=== PATIENT | female | born 1980 | race Caucasian/White ===

== ENCOUNTER 2017-06-06 15:22 | Emergency (ER) | payer OTHER ==
[~2017-06-06] VITALS: Ht 172.7 cm; Wt 65.0 kg
[~2017-06-06 15:22] MED LIST: AMOXICILLIN500 MG PO; AMOXICILLIN875 MG OR; AMOXIL400 MG/5 M PO; AMOXIL500 MG OR; ATENOLOL25 MG OR; ATENOLOL25 MG PO; ATENOLOL50 MG OR; ATENOLOL50 MG PO; ATIVAN0.5 MG PO; AUGMENTIN500 MG OR; AUGMENTIN875 MG OR; CEFTIN500 MG OR; CIPRO500 MG OR; CORTISPORIN OTI10 M1 OT; DILAUDID 2MG2 MG/TA1 PO; FIORICET PO; IBUPROFEN600 MG PO; IRON OR; LOPRESSOR 550 MG/TAB PO; LORTAB 10 OR; LORTAB 5 OR; LORTAB 5/3255 MG PO; LORTAB5 PO; MIDODRINE5 MG PO; MOTRIN600 MG OR; MS CONTIN30 MG PO; MS CONTIN60 MG OR; NO HOME MEDS; NO MEDS; NORCO1 TA1 PO; OXYMORPHONE; PAXIL10 MG OR; PERCOCET 5/325M1 TAB OR; PERCOCET 5/325M1 TAB PO; PERCOCET1 TA4 PO; PRILOSEC20 MG OR; ROBITUSS11 OR; ROXICODONE30 MG OR; SOMA350 MG OR; TENORMIN PO; TENORMIN25 MG PO; TUBERSOL5 MG/0.1 M ID; TUMS500 MG PO; TYLENOL # 31 TAB OR; TYLENOL 500MG TAB PO; TYLENOL ARTH650 MG OR; TYLENOL325 MG PO; TYLENOL500 MG OR; ULTRAM50 MG OR; VERAPAMIL120 M1 PO; VICOPROFEN OR; XANAX0.25 MG PO; XANAX1 MG OR; XANAX1 MG PO; ZANAFLEX4 MG PO
[2017-06-06 16:55] LABS: HEMATOCRIT 33.4 % (37.0-47.0); HEMOGLOBIN 10.8 g/dl (12.0-16.0); IMMATURE GRANULOCYTES 0.3 % (0.0-1.0); MEAN CELL VOLUME 92.5 fL CALC (80.0-100.0); MEAN CORPUSCULAR HGB 29.9 pG CALC (26.0-32.0); MEAN CORPUSCULAR HGB CONC 32.3 g/L CALC (32.0-36.0); NEUT# 3.54 thou/uL (2.00-7.15); RED BLOOD COUNT 3.61 mill/uL (4.20-5.60); RED CELL DISTRI WIDTH 14.6 % (11.5-15.5)
[2017-06-06 17:11] LABS: ALBUMIN 4.1 g/dL (3.2-5.0); ALKALINE PHOSPHATASE 63 u/l (38-126); ANION GAP 15 (6-22 (CALC)); BILIRUBIN, TOTAL 0.5 mg/dL (0.0-1.4); BUN 16 mg/dL (7-17); BUN/CREATININE RATIO 28 (12-20 (CALC)); CALCIUM 9.2 mg/dL (8.4-10.2); CARBON DIOXIDE 22 mmol/l (22-30); CHLORIDE 105 mmol/l (95-108); CREATININE 0.6 mg/dL (0.5-1.0); GFR > 60 ML/MIN (>=60 (CALC)); GFR FOR AFR.AMER. > 60 ML/MIN (>=60 (CALC)); GLUCOSE 97 mg/dL (65-105); POTASSIUM 3.9 mmol/l (3.5-5.1); SGOT/AST 23 u/l (14-36); SGPT/ALT 24 u/l (9-52); SODIUM 139 mmol/l (137-146); TOTAL PROTEIN 7.6 g/dL (6.3-8.2)
[2017-06-06] MEDS ORDERED: LORTAB 10-325 M1 TAB PO (19:22)
[2017-06-06 19:41] VITALS: BP 128/84
== END 2017-06-06 19:42 | disposition home or self-care (01) | DRG 601 ==
LOC: ED 15:22
PROVIDERS: Emergency Medicine
DX: N63.0 Unspecified lump in unspecified breast (principal); I10 Essential (primary) hypertension; F41.0 Panic disorder [episodic paroxysmal anxiety]; G89.29 Other chronic pain; M54.9 Dorsalgia, unspecified; F17.210 Nicotine dependence, cigarettes, uncomplicated; Z86.79 Personal history of other diseases of the circulatory system
CPT/HCPCS: Q9967

== ENCOUNTER 2018-06-17 21:49 | Emergency (ER) | payer OTHER ==
[~2018-06-17] VITALS: Ht 172.7 cm; Wt 60.0 kg
[~2018-06-17 21:49] MED LIST changes: +LORTAB 10-325 M1 TAB PO
[2018-06-17] MEDS ORDERED: MORPHINE SUL30 M5 PO (22:00)
[2018-06-17] MEDS ORDERED: MORPHINE SULFAT30 M2 PO (22:00)
[2018-06-17] MEDS ORDERED: XANAX0.25 MG PO (22:01)
[2018-06-17 23:50] LABS: HEMATOCRIT 33.9 % (37.0-47.0); HEMOGLOBIN 10.7 g/dl (12.0-16.0); IMMATURE GRANULOCYTES 0.4 % (0.0-5.0); MEAN CORPUSCULAR HGB 24.9 pG CALC (26.0-32.0); MEAN CORPUSCULAR HGB CONC 31.6 g/L CALC (32.0-36.0); NEUT# 12.3 thou/uL (2.00-7.15); RED BLOOD COUNT 4.29 mill/uL (4.20-5.60); RED CELL DISTRI WIDTH 18.1 % (11.5-15.5)
[2018-06-18] LABS: ALKALINE PHOSPHATASE 86 u/l (38-126); AMYLASE 42 u/l (30-110); ANION GAP 14 (6-22 (CALC)); BILIRUBIN, TOTAL 0.4 mg/dL (0.0-1.4); BUN 16 mg/dL (7-17); BUN/CREATININE RATIO 29 (12-20 (CALC)); CARBON DIOXIDE 28 mmol/l (22-30); CHLORIDE 102 mmol/l (95-108); CREATININE 0.5 mg/dL (0.5-1.0); GFR > 60 ML/MIN (>=60 (CALC)); GFR FOR AFR.AMER. > 60 ML/MIN (>=60 (CALC)); LIPASE 46 u/l (23-300); SGOT/AST 13 u/l (14-36); SODIUM 140 mmol/l (137-146); TOTAL PROTEIN 7.4 g/dL (6.3-8.2)
[2018-06-18 01:09] LABS: URINE BILIRUBIN - DIPSTICK NEGATIVE (NEGATIVE); URINE BLOOD DIPSTICK NEGATIVE (NEGATIVE); URINE COLOR YELLOW; URINE GLUCOSE - DIPSTICK NEGATIVE (NEGATIVE); URINE KETONE NEGATIVE (NEGATIVE); URINE LEUK ESTERASE NEGATIVE (NEGATIVE); URINE NITRITE - DIPSTICK NEGATIVE (Negative); URINE PH 8.5 (4.5-8.0); URINE PROTEIN - DIPSTICK NEGATIVE (NEG-TRACE)
[2018-06-18 01:14] LABS: URINE CLARITY TURBID
[2018-06-18 01:15] LABS: URINE AMORPH SEDIMENT MANY hpf (NONE-FEW); URINE BACTERIA FEW hpf; URINE CALCIUM OXALATE CRYSTALS FEW lpf; URINE RBC 0-2 RBC/hpf (0-5); URINE SQUAMOUS EPITHELIAL CELL FEW EPI/hpf (0-FEW)
[2018-06-18 01:16] LABS: INFLUENZA A NONE DETECTED (NONE DETECT); INFLUENZA B NONE DETECTED (NONE DETECT)
[2018-06-18] MEDS ORDERED: ZOFRAN ODT4 MG PO (01:23)
[2018-06-18] MEDS ORDERED: LORTAB 1010 MG PO (01:23)
[2018-06-18] MEDS ORDERED: AMOXICILLIN/PO500 MG PO (01:23)
[2018-06-18] MEDS ORDERED: PREVACID30 M3 PO (01:23)
[2018-06-18 06:47] VITALS: BP 118/66
== END 2018-06-18 06:13 | disposition home or self-care (01) ==
LOC: ED 21:49
PROVIDERS: Emergency Medicine
DX: K80.20 Calculus of gallbladder without cholecystitis without obstruction (principal); J02.0 Streptococcal pharyngitis; F17.210 Nicotine dependence, cigarettes, uncomplicated; C50.919 Malignant neoplasm of unspecified site of unspecified female breast; Z79.899 Other long term (current) drug therapy; Z86.79 Personal history of other diseases of the circulatory system; R10.13 Epigastric pain; R11.2 Nausea with vomiting, unspecified
CPT/HCPCS: S0164

== ENCOUNTER 2019-05-20 03:38 | Emergency (ER) | payer MEDICAID ==
[~2019-05-20] VITALS: Ht 172.7 cm; Wt 61.4 kg
[~2019-05-20 03:38] MED LIST changes: +AMOXICILLIN/PO500 MG PO; +LORTAB 1010 MG PO; +MORPHINE SUL30 M5 PO; +MORPHINE SULFAT30 M2 PO; +PREVACID30 M3 PO; +ZOFRAN ODT4 MG PO
[2019-05-20] MEDS ORDERED: HYDROCO/APAP1 TA9 PO (04:07)
[2019-05-20 04:38] VITALS: BP 135/83
== END 2019-05-20 04:38 | disposition home or self-care (01) ==
LOC: ED 03:38
DX: C50.912 Malignant neoplasm of unspecified site of left female breast (principal); C79.51 Secondary malignant neoplasm of bone; F17.210 Nicotine dependence, cigarettes, uncomplicated; Z92.21 Personal history of antineoplastic chemotherapy

== ENCOUNTER 2019-10-28 | Emergency (ER) | payer MEDICAID ==
[~2019-10-28] MED LIST changes: +HYDROCO/APAP1 TA9 PO
[2019-10-28] MEDS ORDERED: MUPIROCIN21 TOP (07:46)
[2019-10-28] MEDS ORDERED: TRAMADOL HYDROC50 MG PO (08:09)
== END 2019-10-28 09:14 | disposition home or self-care (01) ==
DX: N64.59 Other signs and symptoms in breast (principal); C50.912 Malignant neoplasm of unspecified site of left female breast; C79.51 Secondary malignant neoplasm of bone; C79.31 Secondary malignant neoplasm of brain; F17.200 Nicotine dependence, unspecified, uncomplicated

== ENCOUNTER 2019-11-14 | Emergency (ER) | payer MEDICAID ==
[~2019-11-14] MED LIST changes: +MUPIROCIN21 TOP; +TRAMADOL HYDROC50 MG PO
[2019-11-14] MEDS ORDERED: OXYCONTIN15 MG PO (23:33)
[2019-11-14] MEDS ORDERED: DECADRON2 MG PO (23:34)
[2019-11-14 23:53] LABS: HEMATOCRIT 32.1 % (37.0-47.0); HEMOGLOBIN 9.6 g/dl (12.0-16.0); IMMATURE GRANULOCYTES 0.8 % (0.0-5.0); MEAN CORPUSCULAR HGB 25.9 pG CALC (26.0-32.0); MEAN CORPUSCULAR HGB CONC 29.9 g/dL CAL (32.0-36.0); NEUT# 6.7 thou/uL (2.00-7.15); RED BLOOD COUNT 3.71 mill/uL (4.20-5.60); RED CELL DISTRI WIDTH 21.3 % (11.5-15.5)
[2019-11-14 23:54] LABS: MEAN CELL VOLUME 86.5 fL CALC (80.0-100.0)
[2019-11-15 00:10] LABS: ACT PARTIAL THROMBO TIME 26.5 SECONDS (20.0-32.5); ALBUMIN 4.3 g/dL (3.2-5.0); ALKALINE PHOSPHATASE 101 u/l (38-126); ANION GAP 13 (6-22 (CALC)); BUN 23 mg/dL (7-17); BUN/CREATININE RATIO 37 (12-20 (CALC)); CARBON DIOXIDE 26 mmol/l (22-30); CHLORIDE 100 mmol/l (95-108); CREATININE 0.6 mg/dL (0.5-1.0); GFR > 60 ML/MIN (>=60 (CALC)); GFR FOR AFR.AMER. > 60 ML/MIN (>=60 (CALC)); POTASSIUM 3.4 mmol/l (3.5-5.1); PROTHROMBIN TIME 10.1 SECONDS (9.0-12.5); SODIUM 136 mmol/l (137-146)
[2019-11-15 00:11] LABS: BILIRUBIN, TOTAL 0.6 mg/dL (0.0-1.4); SGOT/AST 65 u/l (14-36)
== END 2019-11-15 01:30 | disposition home or self-care (01) ==
PROVIDERS: Family Medicine
DX: I89.0 Lymphedema, not elsewhere classified (principal); C50.919 Malignant neoplasm of unspecified site of unspecified female breast; C79.51 Secondary malignant neoplasm of bone; F17.200 Nicotine dependence, unspecified, uncomplicated